=== PATIENT | male | born 1930 | race Caucasian/White ===

== ENCOUNTER → 2017-02-27 | Outpatient (CLI) | payer BC ==
[~2017-02-27] MED LIST: AMLO10CA PO; ATOR-54 PO; CARB25TA PO; CHOL100010 PO; FINA5TAB4 PO; MULT-506 PO; OMEGCAP2 PO; RASA1TAB PO; RIVA1TAB4 PO; SYN75 PO; ZOLP10TA6 PO
== END | disposition home or self-care (01) ==
LOC: C.LAB1850 14:01
PROVIDERS: ATTEND Internal Medicine Rheumatology
DX: E55.9 Vitamin D deficiency, unspecified (principal); M15.9 Polyosteoarthritis, unspecified; N20.0 Calculus of kidney; M85.80 Other specified disorders of bone density and structure, unspecified site

== ENCOUNTER → 2017-06-29 | Outpatient (CLI) | payer BC ==
[2017-06-29 13:26] LABS: BASO % 0.5 %; BASO ABS # 0.03 K/uL (0-0.2); EOS % 2.6 %; EOS ABS # 0.15 K/uL (0-0.5); HEMATOCRIT 40.7 % (42-52); HEMOGLOBIN 13.8 g/dL (14.0-18.0); IG# 0.01 K/uL (0.00-0.02); LYMPH % 31.4 %; LYMPH ABS # 1.84 K/uL (1.2-3.4); MEAN CELL VOLUME 94.4 fL (80-100); MEAN CORPUSCULAR HGB CONC 33.9 g/dl (32-36); MEAN PLATELET VOLUME 11.2 fL (7.4-10.4); MONO % 8.7 %; MONO ABS # 0.51 K/uL (0.11-0.59); NEUT % 56.6 %; NEUT ABS # 3.32 K/uL (1.4-6.5); PLATELET COUNT 220 K/uL (130-400); RED CELL DISTRIBUTION WIDTH CV 13.4 % (11.5-14.5); RED CELL DISTRIBUTION WIDTH SD 46.4 fL (36.4-46.3); WHITE BLOOD COUNT 5.86 K/uL (4.8-10.8)
[2017-06-29 13:50] LABS: ALBUMIN 3.9 gm/dl (3.4-5.0); ALT/SGPT 12 U/L (12-78); AST/SGOT 25 U/L (15-37); BLOOD UREA NITROGEN 19 mg/dl (7-18); CALCIUM 8.6 mg/dl (8.5-10.1); CARBON DIOXIDE 29 mmol/L (21-32); CREATININE 0.94 mg/dl (0.60-1.40); GLUCOSE 91 mg/dl (70-99); POTASSIUM 3.9 mmol/L (3.5-5.1); SODIUM 137 mmol/L (136-145)
[2017-06-29 14:01] LABS: ALKALINE PHOSPHATASE 83 U/L (45-117); CHOLESTEROL 134 mg/dl (0-200); LDL CHOLESTEROL CALCULATED 69 mg/dl; TOTAL PROTEIN 7.2 gm/dl (6.4-8.2)
== END | disposition home or self-care (01) ==
LOC: C.LABBC 10:52
PROVIDERS: ATTEND Internal Medicine
DX: E78.5 Hyperlipidemia, unspecified (principal); E03.9 Hypothyroidism, unspecified; K44.9 Diaphragmatic hernia without obstruction or gangrene; I10 Essential (primary) hypertension; G20 Parkinson's disease; D64.9 Anemia, unspecified

== ENCOUNTER → 2017-07-29 | Outpatient (CLI) | payer BC ==
--- NOTE | 2017-07-29 12:44 | DIAGNOSTIC IMAGING REPORT ---
[facility] HISTORY: N40.1 Benign prostatic hypertrophy with urinary [id number] COMPARISON: [facility] 07/10/2015. FINDINGS: Moderate to large amount well-formed stool seen throughout the colon. This is similar to the prior study. No evidence for bowel obstruction. A few nondilated gas and fluid-filled loops of small bowel are identified. 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 No renal calculi. No ureteral calculi. No pneumoperitoneum or pneumatosis. IMPRESSION: 1. No renal or ureteral calculi. 2. Moderate to large amount of well-formed stool seen throughout the colon. This remains unchanged. Electronically signed by: Olvin Baez M.D. 07/29/2017 12:42 PM Dictated Date/Time: 07/29/2017 12:37 PM
== END | disposition home or self-care (01) ==
LOC: C.RADBC 11:21
PROVIDERS: ATTEND Urology
DX: N20.0 Calculus of kidney (principal); N40.1 Benign prostatic hyperplasia with lower urinary tract symptoms

== ENCOUNTER → 2017-11-02 | Outpatient (CLI) | payer BC | END | disposition home or self-care (01) | LOC: C.MAMM 10:42 | PROVIDERS: ATTEND Internal Medicine Rheumatology | DX: M85.851 Other specified disorders of bone density and structure, right thigh (principal); M85.852 Other specified disorders of bone density and structure, left thigh; M85.88 Other specified disorders of bone density and structure, other site; N20.0 Calculus of kidney; M15.9 Polyosteoarthritis, unspecified; E55.9 Vitamin D deficiency, unspecified ==